=== PATIENT | male | born 1970 | race Caucasian/White ===

== ENCOUNTER 2022-03-14 14:07 | Outpatient (REF) | payer BC, SELFPAY ==
[2022-03-14 14:23] LABS: MANUAL DIFF FLAG NO
[2022-03-14 15:02] LABS: Basophils Percent Auto 0.4 % (0-2); Eosinophils Percent Auto 0.1 % (0-4); Hematocrit 43.5 % (42.0-52.0); Hemoglobin 15.5 g/dl (14.0-18.0); Imm Gran Abs Auto 0.04 X10*3/uL (0.00-0.03); Imm Gran Pct Auto 0.6 % (0.0-0.4); Lymphocytes Absolute Auto 1.8 X10*3/uL (1.2-4.9); Mean Corpuscular HGB Conc 35.6 g/dl (31.0-36.0); Mean Corpuscular Hemoglobin 31.7 pg (27.0-33.0); Mean Platelet Volume 9.1 fL (9.4-12.4); Monocytes Absolute Auto 0.4 X10*3/uL (0.1-1.2); Monocytes Percent Auto 5.5 % (2-11); Neutrophils Absolute Auto 4.8 x10*3/uL (2.0-8.3); Neutrophils Percent Auto 68.4 % (45-73); Platelet Count 278 X10*3/uL (160-400); Red Blood Count 4.89 X10*6/uL (4.60-5.80); Red Cell Distribution Width 12.3 % (11.0-16.0)
[2022-03-14 15:12] LABS: Estimated Average Glucose 100 mg/dL; Hemoglobin A1c % 5.1 %
[2022-03-14 15:31] LABS: Alanine Aminotransferase 33 U/L (0-40); Albumin Level 4.5 g/dL (3.5-5.0); Alkaline Phosphatase 89 U/L (39-117); Anion Gap 13 (12-20); Aspartate Amino Transferase 15 U/L (5-37); Blood Urea Nitrogen 16 mg/dL (9-16); Calcium 9.6 mg/dL (8.4-10.2); Carbon Dioxide 26 mmol/L (22-29); Chloride 105 mmol/L (96-108); Cholesterol 235 mg/dL; Estimated Glomerular Filt Rate > 60; Glucose Random 111 mg/dL (60-115); HDL Cholesterol 62 mg/dL; LDL Cholesterol Calculated 142 mg/dl; Potassium 4.1 mmol/L (3.3-5.1); Sodium 140 mmol/L (135-145); Total Protein 6.8 g/dL (6.5-8.0); Triglycerides 157 mg/dL
== END 2022-03-14 14:08 | disposition home or self-care (01) ==
LOC: HO.LAB 14:07
PROVIDERS: PCP Internal Medicine; Visit Provider Physician Assistant
DX: Z00.00 Encounter for general adult medical examination without abnormal findings (principal); Z12.5 Encounter for screening for malignant neoplasm of prostate
CPT/HCPCS: 36415; 80053; 80061; 83036; 84153; 85025

== ENCOUNTER 2022-04-05 08:59 | Outpatient (RCR) | payer BC, SELFPAY | END 2022-04-08 09:44 | disposition home or self-care (01) | LOC: HO.WCC 08:59 | PROVIDERS: PCP Internal Medicine; Visit Provider Physician Assistant | DX: L60.0 Ingrowing nail (principal); L03.032 Cellulitis of left toe; Z79.2 Long term (current) use of antibiotics | CPT/HCPCS: 99212 ==

== ENCOUNTER 2022-05-11 10:46 | Outpatient (REF) | payer BC, SELFPAY ==
[2022-05-11 12:51] LABS: Appearance Urine Clear; Color Urine Yellow; Glucose Urine UA Negative (Negative); Leukocyte Esterase Urine Moderate (2+) (Negative); Nitrite Urine Negative (Negative); PH 5.5 (5.0-9.0); Specific Gravity - Urine 1.015 (1.005-1.025); UMIC TRIGGER UACC YES; Urine Blood Small (1+) (Negative); Urine Ketones Negative (Negative); Urine Protein Trace mg/dL (Neg-Trace)
[2022-05-11 13:05] LABS: Bacteria Urine None Seen (None Seen); Hyaline Casts Urine 0-2 /LPF (0-2); RBC Urine 0-2 /HPF (0-2); Squamous Epithelial Cell Urine 0-2 /HPF (0-2); UACC Culture Trigger YES; WBC Urine 21-50 /HPF (0-5)
== END 2022-05-11 10:47 | disposition home or self-care (01) ==
LOC: HO.MANLDS 10:46
PROVIDERS: Visit Provider Physician Assistant
DX: R30.0 Dysuria (principal)
CPT/HCPCS: 81001; 87086; 87088; 87186

== ENCOUNTER 2022-12-12 13:24 | Outpatient (REF) | payer BC, SELFPAY ==
[2022-12-12 14:11] LABS: Appearance Urine Clear; Color Urine Yellow; Glucose Urine UA Negative (Negative); Leukocyte Esterase Urine Moderate (2+) (Negative); Nitrite Urine Negative (Negative); PH 5.5 (5.0-9.0); UMIC TRIGGER UACC YES; Urine Blood Trace (Negative); Urine Ketones Negative (Negative); Urine Protein Negative (Neg-Trace)
[2022-12-12 14:19] LABS: Bacteria Urine None Seen (None Seen); Hyaline Casts Urine 0-2 /LPF (0-2); RBC Urine 0-2 /HPF (0-2); Squamous Epithelial Cell Urine 0-2 /HPF (0-2); UACC Culture Trigger YES; WBC Urine >50 /HPF (0-5)
== END 2022-12-12 13:25 | disposition home or self-care (01) ==
LOC: HO.LNP 13:24
PROVIDERS: Visit Provider Internal Medicine
DX: R30.0 Dysuria (principal)
CPT/HCPCS: 81001; 87086; 87088; 87186

== ENCOUNTER 2023-01-05 22:17 | Emergency (ER) | payer BC, SELFPAY ==
[2023-01-05 22:24] VITALS: BP 144/82; PULSE 86; O2SAT 96
[2023-01-05 22:42] VITALS: PULSE 83; RESP 18; TEMP 36.8; O2SAT 96; BMI 32.1
--- NOTE | 2023-01-05 22:50 | PC.NURSE ---
pt biba from the car, pt found in car by PD slumped over in car. pt denies any substance abuse at this time including alcohol and drugs. pt denies pain. pt denies si/hi. per charger operator, ok to not change pt over at this time.
--- NOTE | 2023-01-05 23:40 | PC.NURSE ---
upon exiting another pt room, this RN noted pt to no longer be in stretcher, stretcher had been taken to other room. Floral Merchandiser Terry had stated to me she had seen pt walking towards ambulance bay and alerted charge of incident. security alerted at this time.
--- NOTE | 2023-01-05 23:50 | PC.NURSE ---
pt biba from the car, pt found in car by PD slumped over in car. pt denies any substance abuse at this time including alcohol and drugs. pt denies pain. pt denies si/hi. per discharge specialist, ok to not change pt over at this time.
--- NOTE | 2023-01-05 23:55 | PC.NURSE ---
pt not in his bed, security checking on the cameras. last set of vitals at 2242 and seen last by barrington at 2330. hr receptionist seen pt walk out the doors. security confirms pt walking out the door at 2338. got in to a vehicle in c lot and left. pt was in his street clothing.
--- NOTE | 2023-01-06 | PC.NURSE ---
pt daughter called and left message to return call to .
--- NOTE | 2023-01-06 00:06 | PC.NURSE ---
Micaelafier spouse has been contacted and he has not called home or shown up yet. the will try calling his cell phone [phone]. christiano galloway has bee called.
--- NOTE | 2023-01-06 00:33 | PC.NURSE ---
reading back at the notes and this hemodialysis charge nurse never stated it was ok not to change him over into pod attire. pt is to be changed over into hospital gown.
--- NOTE | 2023-01-06 00:53 | PC.NURSE ---
called again to see if saji has returned home. no answer. left message. pt cell phone was also called and no answer.
--- NOTE | 2023-01-06 01:02 | PC.NURSE ---
Angelina called back and he is at home safe and sound. believes he doesnt need hospital attention tonight. this rn encouraged for him to be brought back to be evaluated. this call was at 0100.
== END 2023-01-06 00:59 | disposition left against medical advice (07) ==
PROVIDERS: Emergency Provider Emergency Medicine
DX: R41.82 Altered mental status, unspecified (principal)
CPT/HCPCS: 99281

== ENCOUNTER 2023-03-15 08:08 | Outpatient (REF) | payer BC, SELFPAY ==
[2023-03-15 12:44] LABS: MANUAL DIFF FLAG NO
[2023-03-15 12:47] LABS: Eosinophils Absolute Auto 0.1 X10*3/uL (0.0-0.4); Eosinophils Percent Auto 3.3 % (0-4); Hematocrit 45.5 % (42.0-52.0); Hemoglobin 15.8 g/dl (14.0-18.0); Lymphocytes Absolute Auto 1.6 X10*3/uL (1.2-4.9); Lymphocytes Percent Auto 39.9 % (20-40); Mean Corpuscular HGB Conc 34.7 g/dl (31.0-36.0); Mean Corpuscular Hemoglobin 31.9 pg (27.0-33.0); Mean Corpuscular Volume 91.7 fL (80.0-98.0); Mean Platelet Volume 9.8 fL (9.4-12.4); Monocytes Absolute Auto 0.3 X10*3/uL (0.1-1.2); Monocytes Percent Auto 6.5 % (2-11); Neutrophils Percent Auto 49.3 % (45-73); Platelet Count 251 X10*3/uL (160-400); Red Blood Count 4.96 X10*6/uL (4.60-5.80); Red Cell Distribution Width 12.6 % (11.0-16.0)
[2023-03-15 13:00] LABS: Estimated Average Glucose 103 mg/dL; Hemoglobin A1c % 5.2 % (<6.0)
[2023-03-15 13:16] LABS: Alanine Aminotransferase 25 U/L (0-40); Albumin Level 4.3 g/dL (3.5-5.0); Alkaline Phosphatase 81 U/L (39-117); Anion Gap 12 (12-20); Aspartate Amino Transferase 19 U/L (5-37); Bilirubin Total 1.1 mg/dL (0.0-1.0); Blood Urea Nitrogen 12 mg/dL (9-16); Calcium 9.2 mg/dL (8.4-10.2); Carbon Dioxide 24 mmol/L (22-29); Chloride 107 mmol/L (96-108); Cholesterol 229 mg/dL (<200); Estimated Glomerular Filt Rate > 60; Glucose Random 88 mg/dL (60-115); HDL Cholesterol 46 mg/dL (>40); LDL Cholesterol Calculated 161 mg/dL (<100); Potassium 4.2 mmol/L (3.3-5.1); Sodium 139 mmol/L (135-145); Total Protein 6.8 g/dL (6.5-8.0); Triglycerides 110 mg/dL (<150)
== END 2023-03-15 08:09 | disposition home or self-care (01) ==
LOC: HO.MANLDS 08:08
PROVIDERS: Visit Provider Physician Assistant
DX: Z00.00 Encounter for general adult medical examination without abnormal findings (principal); Z12.5 Encounter for screening for malignant neoplasm of prostate
CPT/HCPCS: 36415; 80053; 80061; 83036; 84153; 85025

== ENCOUNTER 2024-04-29 08:55 | Outpatient (REF) | payer BC, SELFPAY ==
--- OUTSIDE RECORDS SUMMARY | 2024-04-29 09:23 | XMS_ITS | Clinical Summary ---
Author Organization [facility] Address [address] [place] [address] Care Team Providers Care Port Traffic Manager Name Role Phone Unavailable Primary Care Provider Unavailabl e Source Comments PLEASE NOTE, if this patient is a minor, it may be UNLAWFUL to discuss sensitive information that is contained in these records (such as FAMILY PLANNING, MENTAL HEALTH or SUBSTANCE ABUSE) with the minor patient's parent or other person without the patient's specific authorization.[facility] Immunizations Name Administration Dates Next Due Moderna COVID-19 Vaccine, re d cap blue label, 12+ Primary Series 06/23/2020,05/26/2020 Social History Tobacco Use Types Packs/Day Years Used Date Smoking Tobacco: Never Assessed Social Connections Answer Date Recorded Social Connections and Isolation 0 05/26/2020 Financial Resource Strain Answer Date R ecorded Financial Resource Strain 0 2020 Stress Answer Date Recorded Stress 0 05/26/2020 Physical Activity Answer Date Recorded Physical Activity 0 05/26/2020 Food Insecurity Answer Date Recorded Food 0 05/26/2020 Transportation Needs Answer Date Record ed Transportation 0 05/26/2020 Housing Stability Answer Date Recorded Housing 0 05/26/2020 Safety and Environment Answer Date Leonid rded Safety 0 05/26/2020 Utilities Answer Date Recorded Utilities 0 05/26/2020 Employment Answer Date Recorded Employment 0 05/26/2020 Sex and Gender Information Value Date Recorded Sex Assigned at Not on file Legal Sex Male 6:17 AM PDT Gender Identity Not on file Sexual Orientation Not on file Plan of Treatment Health Maintenance Due Date Last Done Comments Diabetes Screening 1968 Hepatitis C Screening 1968 Lipid Screening 1968 Tobacco Screening 1968 HIV Screening 01/06/1983 Hypertension Screening (#1) 01/06/1986 Imm-DTaP/Tdap/Td (1 - Tdap) 01/06/1987 Imm-Hepatitis B (1 of 3 - 19 + 3-dose series) 01/06/1987 CT Colonography 01/06/2013 Colonoscopy 01/06/2013 Colorectal Cancer Screening 01/06/2013 FIT/gFOBT 01/06/2013 Fecal DNA 01/06/2013 Flexible Sigmoidoscopy 01/06/2013 Imm-Zoster, Recombinant (1 of 2) 01/06/2018 [id number] ( season) 2023 021, 05/26/2020 Imm-Influenza (#1) 2023 Alcohol and Drug Screen 02/21/2024 Depression Annual Screen 02/21/2024 Insurance Dragon Inside [employer] Member Subscriber Plan / Payer (Ef fective 2020-Present) Name:Tasha MCCOY Relation to Subscriber:Self Name:Tasha MCCOY Payer ID:[id number] Type:Indemnity Address: [facility] [id number] [place] [address]
--- OUTSIDE RECORDS SUMMARY | 2024-04-29 09:23 | XMS_ITS | Continuity of Care Document ---
Author Organization [facility] Address [address] [place] [address] [place] [address] Assessment No assessment recorded. Plan of Treatment Reminders Order Date Submit Date Provider Last Modified By Organization Details Last Modified Time Details Appointments None recorded. Lab CMP, serum or plasma 2024 025 [facility], [address] [place] [address], [address], 12:17:13 CBC w/ auto diff 2024 025 [facility], [address] [place] [address], [address], 12:17:13 PSA, serum or plasma 2024 025 [facility], [address] [place] [address], [address], 12:17:14 lipid panel, blood 2024 025 [facility], [address] [place] [address], [address], 5 12:17:14 hemoglobin A1c, QN, blood 2024 025 [facility], [address] [place] [address], [address], 5 12:17:13 Referral None recorded. Procedures None recorded. Surgeries None recorded. Imaging XR, shoulder, 2 or more view 2024 025 [facility] Central Scheduling (Not Breast), [address] [place] [address], [address], 13:03:18 XR, clavicle 2024 025 [facility] Central Scheduling (Not Breast), [address] [place] [address], [address], 13:03:20 Medication Orders None recorded. Patient TargetsNo targets recorded. Patient InstructionsNo instructions recorded. Reason for Referral None Reported. Results Created Date Observation Date Name Description Value Unit Range Abnormal Flag Note LastModifiedBy Organization Detail LastModifiedTime 04/26/1904/24/2024 XR, shoul leslie, 2 or more view No observ ation record ed. [address], [address], 04/26/2024 08:50:24 04/26/19 25 04/24/2024 XR, clavi xavi No observ ation record ed. [address], [address], 04/26/2024 08:50:24 Result Notes None recorded. Problems Name Problem SNOMED Code Status Onset Date Resolution Date Notes Provider Name and Address Organization Details Recorded Time Herpes zoster 4289287 Active 2019 RAFAEL CANELA [address] [place] [address], [address], [facility] 0 11:26:52 Infection of toe 941161871 Active 2022 RAFAEL CANELA [address] [place] [address], [address], [facility] 3 12:33:48 Dysuria 23241716 Active 2022 RAFAEL CANELA [address] [place] [address], [address], [facility] 3 10:43:53 Acute urinary tract infection 604069104 Active 2022 RAFAEL CANELA [address] [place] [address], [address], [facility] 3 12:27:17 Acute prostatit is 40272819 Active 2022 Cruz Lopez [address], [address], [facility] 3 12:31:04 Pain in finger of right hand 362586339602 109 Active 2022 Cruz Lopez [address], [address], [facility] 3 12:31:34 Pain of right testicle 322613345233 [address] Active 2023 RAFAEL CANELA [address] [place] [address], [address], [facility] 4 11:51:09 Clavicle injury 601421792 Active 2024 RAFAEL CANELA [address] [place] [address], [address], [facility] 5 10:11:32 Asthma 742094138 Active 2017 Ale escalera [facility] 8 08:01:42 Allergic rhinitis 17356115 Active 2017 Ale escalera [facility] 8 08:02:56 Problem Notes None recorded. Procedures Surgical History Date Name Laterality Status Provider Name and Address Organization Details Recorded Time 09/28/19 20 colonoscopy completed RAFAEL CANELA [address] [place] [address], [address], [facility] 03/03/2022 09:01:50 Imaging Results None recorded. Procedure Notes None recorded. Medical Equipment None Reported. Allergies No known drug allergies Medications Name Sig Start Date Stop Date Status Note LastModified by Organization Details LastModified Time prednisone 20 mg tablet 03/03 completed Not Available Not Available Not Available ciprofloxac in 500 mg tablet TAKE 1 TABLET BY MOUTH EVERY 12 HOURS FOR 7 DAYS 10/30 completed Not Available Not Available Not Available sulfamethox azole 800 mg-trimetho prim 160 mg tablet TAKE ONE TABLET BY MOUTH EVERY 12 HOURS FOR 12 DAYS 08/28 completed Not Available Not Available Not Available triamcinolo ne acetonide 0.1 % topical cream APPLY THIN LAYER TOPICALLY TO THE AFFECTED AREA TWICE DAILY 12/12 completed Not Available Not Available Not Available cefadroxil 500 mg capsule TAKE 1 CAPSULE BY MOUTH TWICE DAILY 12/12 completed Not Available Not Available Not Available phenazopyri dine 100 mg tablet TAKE 1 TABLET BY MOUTH THREE TIMES DAILY 08/28 completed Not Available Not Available Not Available Valtrex 1 gram tablet Take 1 tablet every 8 hours by oral route for 7 days. 12/12 completed Not Available Not Available Not Available cephalexin 500 mg tablet TAKE 1 TABLET BY MOUTH THREE TIMES DAILY WITH MEALS FOR 10 DAYS 03/03 completed Not Available Not Available Not Available clobetasol 0.05 % topical ointment APPLY SMALL AMOUNT TOPICALLY TO THE AFFECTED AREA DAILY FOR 2 TO 4 WEEKS THEN STOP 03/03 completed Not Available Not Available Not Available methylpredn isolone 4 mg tablets in a dose pack FOLLOW PACKAGE DIRECTION S 12/12 completed Not Available Not Available Not Available doxycycline hyclate 100 mg tablet TAKE 1 TABLET BY MOUTH TWICE DAILY FOR 10 DAYS 12/12 completed Not Available Not Available Not Available nitrofurant oin monohydrate /macrocryst als 100 mg capsule TAKE 1 CAPSULE BY MOUTH EVERY 12 HOURS FOR 10 DAYS 12/12 completed Not Available Not Available Not Available ProAir HFA 90 mcg/actuati on aerosol inhaler Inhale 2 puffs every 4 hours by inhalatio n route. 12/12 completed Not Available Not Available Not Available Afluria Qd 2018- (36 mos up)(PF)60 mcg (15 mcg x4)/0.5 mL IM syringe 03/03 completed Not Available Not Available Not Available Vitals Date Recorded Body height Body mass index (BMI) Body weight Heart rate Oxygen saturation Oxygen saturation in Arterial blood by Pulse oximetry Systolic blood pressure Diastolic blood pressure Provider Name and Address Organization Details Last Updated DateTime 5 190.5 cm 41 kg/m2 827268. 3 g 84 /min 94 % 94 % 124 mm[Hg] 80 mm[Hg] Jim Sage [facility] 5 11:36:00 Social History Question Answer Notes LastModified by Organizat ion Details LastModified Time Tobacco Smoking Status Never Smoker Ale escalera [facility] 06/19/2017 09:09:21 What Was The Date Of Your Most Recent Tobacco Screening? 04/24/2024 [email or web address] Information not available 04/24/2024 Do You Or Have You Ever Used Any Other Forms Of Tobacco Or Nicotine? No [email or web address] Information not available 03/03/2022 Sex: Unknown Functional Status None recorded. Mental Status None recorded. Family History Nothing Reported. Medical History No medical history recorded. Immunizations Vaccine Type Date Status Note Provider Nam e and Address Organization Details Recorded Time Influenza, split virus, quadrivalent, preservative 1 completed Ale escalera [facility] 12/29/2020 08:30:08 COVID-19, mRNA, LNP-S, PF, 100 mcg/0.5mL dose or 50 mcg/0.25mL dose 1 completed Ale escalera [facility] 12/29/2020 08:30:22 Tdap 9 completed RAFAEL CANELA [address] [place] [address], [address], [facility] 03/13/2023 09:17:16 Past Encounters Encounter ID Performer Location Encounter Start Date Encounter Closed Date Diagnosis/Indication Diagnosis SNOMED-CT Code Diagnosis ICD10 Code Diagnosis Note [id number] [facility] [address] [place] [address], [place] [address] 04/09/2024 09:18:09 04/09/2024 11:03:22 Clavicle injury 224436989 S29.9XXA ortho referral sent fall W19.XXXA [id number] RAFAEL CANELA [facility] [address] [place] [address], [place] [address] 04/24/2024 11:28:30 04/24/2024 12:27:12 Active or passive immunization 044492858 Z23 up-to-date Adult heal th examination 667360950 Z00.00 BP is excellent today Clavicle injury 30443380 4 S29.9XXA recheck XR'sortho f/u 05/07 will see if worse to get him sooner Health Concerns Section Related Observation LastModified by Organization Detai ls LastModified Time None Recorded Concern Status LastModified by Organization Details LastModified Time None Recorded Payers Encounter Date Sequence Insurance Name Policy Number Policy Haynes Covered Member ID Haynes Member ID Guarantor Name 04/24/2024 1 [facility]: [facility] [place] [place] [id number] Angelina Pop [id number] Angelina Pop Notes Date Note Type Note Provider Name a de Address Organization Details Recorded Time text/html Annual WellnessReported bypatient.Diet and Nutrition:healthy diet; discussed vitamin and supplement use; discussed portion control; discussed maintaining calcium balance; discussed diet improvement Fracture Risk:no history of fractures; no recent explained fracture; no sudden unexplained fractures; no previous musculoskeletal injuries Physical Activity:exercises on a regular basis; recent increase in physical activity; good physical condition Additional Lifestyle Factors:no tobacco use; drinks alcohol (mild-moderate) Depression Risk:never feels sad, empty, or tearful; no loss of interest in activities; no significant changes in weight; no sleep disturbances or insomnia; no agitation; no loss of energy; no feelings of worthlessness or guilt; no thoughts of suicide; no history of depression; no history of mood disorders Hearing:no loss of hearing Vision:no vision problems RAFAEL CANELA [address] [place], [address], [facility] 04/24/2024 12:10:20
--- OUTSIDE RECORDS SUMMARY | 2024-04-29 09:23 | XMS_ITS | Data Portability ---
Author Organization [facility] Home Service Address [address] [place] [address] Assessment Encounter Date Assessment Date Assessment LastModified by Organization Details LastModified Time 04/09/2024 04/09/2024 Patient agreed and verbally consents to this audio and video Telehealth appt via a secure platform [email or web address] Not available 04/09/2024 10:11:04 Plan of Treatment Reminders Order Date Submit Date Provider Last Modified By Organization Details Last Modified Time Details Appointments None recorded. Lab CMP, serum or plasma 2024 025 [facility], [address] [place] [address], [address], 12:17:13 CBC w/ auto diff 2024 025 [facility], [address] [place] [address], [address], 12:17:13 PSA, serum or plasma 2024 025 [facility], [address] [place] [address], [address], 12:17:14 lipid panel, blood 2024 025 [facility], [address] [place] [address], [address], 5 12:17:14 hemoglobin A1c, QN, blood 2024 025 [facility], [address] [place] [address], [place], [address], 5 12:17:13 urinalysis complete, reflex culture 2023 024 [facility], [address] [place] [address], [place], [address], 4 15:12:36 CMP, serum or plasma 2023 024 [facility], [address] [place] [address], [address], 4 12:37:15 CBC w/ auto diff 2023 024 [facility], [address] [place] [address], [address], 4 12:37:16 lipid panel, blood 2023 024 [facility], [address] [place] [address], [place], [address], 4 09:22:33 PSA, serum or plasma 2023 024 [facility], [address] [place] [address], [address], 4 12:37:15 hemoglobin A1c, QN, blood 2023 024 [facility], [address] [place] [address], [address], 4 12:37:15 Referral orthopedic surgeon referral 2024 025 [facility], [address] [place], [address], 5 12:11:43 gastroente rologist referral 2023 024 lima Danielson MD, [address] [place], [address], 4 08:28:09 Procedures None recorded. Surgeries None recorded. Imaging XR, shoulder, 2 or more view 2024 025 [facility] Central Scheduling (Not Breast), [address] [place] [address], [address], 5 13:03:18 XR, clavicle 2024 025 [facility] Central Scheduling (Not Breast), [address] [place] [address], [address], 5 13:03:20 US, testicle - right testicular mass/swell ing with discomfort 2023 024 [email or web address] 10 Not available 4 08:16:46 Medication Orders ciprofloxa dari 500 mg tablet 2023 024 [id number], [address] [place], [place], [id number], 4 11:47:29 Patient TargetsNo targets recorded. Patient InstructionsNo instructions recorded. 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 [email or web address] [address], [address], 11/07/2023 15:04:56 04/26/19 25 04/24/2024 XR, shoul leslie, 2 or more view No observ ation record ed. [address], [address], 04/26/2024 08:50:24 04/26/19 25 04/24/2024 XR, clavi xavi No observ ation record ed. [address], [address], 04/26/2024 08:50:24 Result Notes None recorded. Problems Name Problem SNOMED Code Status Onset Date Resolution Date Notes Provider Name and Address Organization Details Recorded Time Herpes zoster 7747777 Active 2019 RAFAEL CANELA [address] [place] [address], [address], [facility] 0 11:26:52 Infection of toe 027808874 Active 2022 RAFAEL CANELA [address] [place] [address], [address], [facility] 3 12:33:48 Dysuria 99885835 Active 2022 RAFAEL CANELA [address] [place] [address], [address], [facility] 3 10:43:53 Acute urinary tract infection 565681773 Active 2022 RAFAEL CANELA [address] [place] [address], [address], [facility] 3 12:27:17 Acute prostatit is 70357648 Active 2022 Cruz Lopez DO [address] [place] [address], [address], [facility] 3 12:31:04 Pain in finger of right hand 153724863209 109 Active 2022 Cruz Lopez DO [address] [place] [address], [address], [facility] 3 12:31:34 Pain of right testicle 804992144651 77387 Active 2023 RAFAEL CANELA [address] [place], [address], [facility] 4 11:51:09 Clavicle injury 292741214 Active 2024 RAFAEL CANELA [address] [place], [address], [facility] 5 10:11:32 Ast[facility] 793700234 [facility] 8 08:01:42 Allergic rhinitis 74991331 [facility] 08:02:56 Problem Notes None recorded. Procedures Surgical History Date Name Laterality Status Provider Name and Address Organization Details Recorded Time 09/28/19 20 colonoscopy completed RAFAEL CANELA [address] [place], [address], [facility] 03/03/2022 09:01:50 Imaging Results Imaging Date Name Status LastModified by Organiz ation Details LastModified Time 11/06/2023 US, testicle completed [email or web address] [address], [address], 11/07/2023 15:04:56 04/24/2024 XR, shoulder, 2 or more view completed [email or web address] [address], [address], 04/26/2024 08:50:24 04/24/2024 XR, clavicle completed [email or web address] [address], [address], 04/26/2024 08:50:24 Procedure Notes None recorded. Medical Equipment None [...] and Address Organization Details Last Updated DateTime 4 190.5 cm 32 kg/m2 634068. 65 g 82 /min 96 % 96 % 110 mm[Hg] 60 mm[Hg] Charis Coy [facility] 4 09:11:06 Date Recorded Body height Body mass index (BMI) Body weight Heart rate Oxygen saturation Oxygen saturation in Arterial blood by Pulse oximetry Systolic blood pressure Diastolic blood pressure Provider Name and Address Organization Details Last Updated DateTime 4 190.5 cm 31.5 kg/m2 190831. 56 g 92 /min 94 % 94 % 118 mm[Hg] 78 mm[Hg] Jim Sage [facility] 4 15:01:14 Date Recorded Body height Body mass index (BMI) Body weight Heart rate Oxygen saturation Oxygen saturation in Arterial blood by Pulse oximetry Systolic blood pressure Diastolic blood pressure Provider Name and Address Organization Details Last Updated DateTime 4 190.5 cm 31.2 kg/m2 132010. 09 g 74 /min 96 % 96 % 118 mm[Hg] 66 mm[Hg] Jim Sage [facility] 4 11:47:01 Date Recorded Body height Body mass index (BMI) Body weight Heart rate Oxygen saturation Oxygen saturation in Arterial blood by Pulse oximetry Systolic blood pressure Diastolic blood pressure Provider Name and Address Organization Details Last Updated DateTime 5 190.5 cm 41 kg/m2 718995. 3 g 84 /min 94 % 94 % 124 mm[Hg] 80 mm[Hg] Jim Sage [facility] 5 11:36:00 Social History Question Answer Notes LastModified by Organizat ion Details LastModified Time Tobacco Smoking Status Never Smoker Ale escalera [facility] 06/19/2017 09:09:21 What Was The Date Of [...] virus, quadrivalent, preservative 1 completed Ale escalera [facility] 12/29/2020 08:30:08 COVID-19, mRNA, LNP-S, PF, 100 mcg/0.5mL dose or 50 mcg/0.25mL dose 1 completed Ale escalera [facility] 12/29/2020 08:30:22 Tdap 9 completed RAFAEL CANELA [address] [place] [address], [address], [facility] 03/13/2023 09:17:16 Past Encounters Encounter ID Performer Location Encounter Start Date Encounter Closed Date Diagnosis/Indication Diagnosis SNOMED-CT Code Diagnosis ICD10 Code Diagnosis Note [id number] Meagan Russo NP, S [facility] [address] [facility], [place] [address] 06/19/2017 09:02:31 06/19/2017 10:36:33 Oxygen saturation below reference range 563992926 R79.81 call if symptoms recur Asthma 004409978 J45.90 9 mild intermitte nt Viral uppe r respiratory tract infection 407200675 J06.9 supportive care measures, call if persists [id number] RAFAEL CANELA [facility] [address], [place] [address] 09/11/2019 11:11:43 09/11/2019 11:36:39 Asthma 783805562 J45.909 stable Herpes zoster 8457290 B0 2.9 possible shingles rash on the chest did not clear up with prednisone and causing chest discomfort /pain in area of the rash [id number] RAFAEL CANELA [facility] [address], [place] [address] 03/03/2022 08:46:05 03/03/2022 09:17:27 Active or passive immunization 540312148 Z23 up to date Adult heal th examination 507386597 Z00.00 BP is stable Asthma 349144967 J45.20 stable; avoid his triggersdo ing really well Herpes zoster 1107619 B0 2.9 needs refill [id number] Cruz Lopez, [facility] [address] [address] 12/12/2022 11:49:21 12/12/2022 15:38:05 Dysuria 68503940 R30.0 has frequency and we will have his UA sent out Acute prostatitis 150843 02 N41.0 fairly classic symptoms will send out UA but will treat with bactrim ds Pain in fi nger of right hand 4084963783 74755 M79.644 noted in 3rd ln knuckle of right hand will use diclofenac gel [id number] RAFAEL CANELA [facility] [address] [facility] [address] [address] 03/13/2023 09:01:37 03/13/2023 09:40:37 Adult health examination 045888673 Z00.00 BP is excellent today Screening for malignant neoplasm of colon 608825723 Z12.11 will set up with GI consult, may be due for his colonoscop y [id number] RAFAEL CANELA [facility] [address] [facility] [address] [address] 08/29/2023 14:39:49 08/29/2023 16:14:25 Dysuria 00165163 R30.0 will send out urine Depression screening 171 288927 Z13.31 negative Acute prostatitis 855705 02 N41.0 will start on cipro for the next 7 days BID [id number] RAFAEL CANELA [facility] [address] [facility] [address] [address] 10/31/2023 11:38:19 10/31/2023 13:30:10 Depression screening 352276721 Z13.31 negative Pain of ri ght testicle 1182059220 9712470 N50.811 will set up with US testicle [id number] RAFAEL CANELA [facility] [address],[place] [address] 04/09/2024 09:18:09 04/09/2024 11:03:22 Clavicle injury 022653524 S29.9XXA ortho referral sent Fall W19.XXXA [id number] RAFAEL CANELA [facility] [address] [address] 04/24/2024 11:28:30 04/24/2024 12:27:12 Active or passive immunization 264508534 Z23 up-to-date Adult heal th examination 446563845 Z00.00 BP is excellent today Clavicle injury 07515379 4 S29.9XXA recheck XR'sortho f/u 05/07 will see if worse to get him sooner Health Concerns Section Related Observation LastModified by Organization Detai ls LastModified Time None Recorded Concern Status LastModified by Organization Details LastModified Time None Recorded Advance Directives Directive None Recorded Payers Encounter Date Sequence Insurance Name Policy Number Policy Haynes Covered Member ID Haynes Member ID Guarantor Name 03/13/2023 1 [place] [facility] [id number] Angelina P Kiesha [id number] Angelina Kiesha 08/29/2023 1 [place] [facility] [id number] Angelina P Kiesha [id number] Angelina Kiesha 10/31/2023 1 [place] [facility] [id number] Angelina P Kiesha [id number] Angelina Kiesha 04/09/2024 1 [place] [facility] [id number] Angelina P Kiesha [id number] Angelina Kiesha 04/24/2024 1 [place] [facility] [id number] Angelina P Kiesha [id number] Angelina Kiesha Notes Date Note Type Note Provider Name a nd Address Organization Details Recorded Time text/html Annual WellnessReported bypatient.Diet and Nutrition:healthy diet; discussed vitamin and supplement use; discussed portion control; discussed maintaining calcium balance; discussed diet improvement Fracture Risk:no history of fractures; no recent explained fracture; no sudden unexplained fractures; no previous musculoskeletal injuries Physical Activity:exercises on a regular basis; recent increase in physical activity; good physical condition; discussed weightbearing activities; discussed exercise habits Additional Lifestyle Factors:no tobacco use; drinks alcohol (mild-moderate) Depression Risk:never feels sad, empty, or tearful; no loss of interest in activities; no significant changes in weight; no sleep disturbances or insomnia; no agitation; no loss of energy; no feelings of worthlessness or guilt; no thoughts of suicide; no history of depression; no history of mood disorders Hearing:no loss of hearing Vision:no vision problems; uses cheaters up close issues, distance is fine BP is excellent todayasthma is stable RAFAEL CANELA [address] [place], [address], [facility] 03/13/2023 09:25:54 4 text/html c/o UTI symptoms/hx of prostatitis the patient reports for the past week he has had urinary symptoms, hx of prostatitisthe patient reports frequency, urgency, cloudy urine, and general discomfortthe patient has been using Azo for the discomfort can continue the Azowill start on cipro for the next 7 days depression screening negative RAFAEL CANELA [address] [place], [address], [facility] 08/29/2023 15:13:27 4 text/html c/o testicular pain (R) the patient has an enlarged testicle on the right side with swelling and discomfortthe patient reports that it has been going on for about 2 years, had been seen prior, not by our office, nothing noted on file, could have been UC, patient not entirely sure, was told that it wasn't concerning and did urine and lab work that unremarkable has been getting bigger and more uncomfortable, recommended US after evaluation RAFAEL CANELA [address] [place], [address], [facility] 10/31/2023 12:01:15 5 text/html c/o clavicular injury The patient is participating in this appointment via telemedicine communication with a phone call/video calling service (Doxy)The patient consents to use of these platforms in place of an in-person appointment due to either sick symptoms the patient is presenting with or current office closure due to COVID exposure in order to keep our office staff and patients safe the patient fell on the ice on , went to on Mondaythe patient got XRs showed separation of the R distal clavicle, grade 3the recommended orthopedics, advanced orthopedics (in [place]) per pt research referral placedhas report and XRs with him, he will provide at time of appt otherwise can use APAP and IBu PRN for painavoid excess use of the right arm RAFAEL CANELA [address] [place], [address], [facility] 04/09/2024 10:15:23 5 text/html Annual WellnessReported bypatient.Diet and Nutrition:healthy diet; [...] hearing Vision:no vision problems RAFAEL CANELA [address] [place], [address], [facility] 04/24/2024 12:10:20
--- OUTSIDE RECORDS SUMMARY | 2024-04-29 09:23 | XMS_ITS | Continuity of Care Document ---
Author Organization [place] [facility], [facility] Address [address] [facility] [place] [address] [place] [address] Assessment Encounter Date Assessment Date Assessment LastModified by Organization Details LastModified Time 04/09/2024 04/09/2024 Patient agreed and verbally consents to this audio and video Telehealth appt via a secure platform [facility] Not available 04/09/2024 10:11:04 Plan of Treatment Reminders Order Date Submit Date Provider Last Modified By Organization Details Last Modified Time Details Appointments None recorded. Lab None recorded. Referral orthopedic surgeon referral [address] [facility], [address] [place], [address], 12:11:43 Procedures None recorded. Surgeries None recorded. Imaging None recorded. Medication Orders None recorded. Patient TargetsNo targets recorded. Patient InstructionsNo instructions recorded. Reason for Referral Orthopedic Surgeon Referral for Clavicle injury right distal clavicular injury, grade 3 separation per UC, has records he is bringing Referring Physician: Arleen Prater, Internal Medicine, Encounter Date: 04/09/2024 Results Created Date Observation Date Name Description Value Unit Range Abnormal Flag Note LastModifiedBy Organization Detail LastModifiedTime 04/26/1904/24/2024 XR, shoul leslie, 2 or more view No observ ation record ed. [email or web address] [facility] [address] [facility], [place], [address], 04/26/2024 08:50:24 04/26/1904/24/2024 XR, clavi xavi No observ ation record ed. [email or web address] [facility] [address] [facility], [place], [address], 04/26/2024 08:50:24 Result Notes None recorded. Problems Name Problem SNOMED Code Status Onset Date Resolution Date Notes Provider Name and Address Organization Details Recorded Time Herpes zoster 6076614 Active 2019 RAFAEL CANELA [address] [place] [address], [address], [facility] 0 11:26:52 Infection of toe 911483571 Active 2022 RAFAEL CANELA [address] [place] [address], [address], [facility] 3 12:33:48 Dysuria 00338556 Active 2022 RAFAEL CANELA [address] [place] [address], [address], [facility] 3 10:43:53 Acute urinary tract infection 248839648 Active 2022 RAFAEL CANELA [address] [place] [address], [address], [facility] 3 12:27:17 Acute prostatit is 34746334 Active 2022 Cruz Lopez DO [address] [place] [address], [address], [facility] 3 12:31:04 Pain in finger of right hand 355162554019 109 Active 2022 Cruz Lopez DO [address] [place] [address], [address], [facility] 3 12:31:34 Pain of right testicle 025381732361 [address] Active 2023 RAFAEL CANELA [address] [place] [address], [address], [facility] 4 11:51:09 Clavicle injury 548571078 Active 2024 RAFAEL CANELA [address] [place], [address], [facility] 5 10:11:32 Asthma 993928424 Active 2017 [facility] 8 08:01:42 Allergic rhinitis 58404478 Active 2017 Ale escalera [facility] 8 08:02:56 Problem Notes None recorded. Procedures Surgical History Date Name Laterality Status Provider Name and Address Organization Details Recorded Time 09/28/19 20 colonoscopy completed RAFAEL CANELA [address] [place], [address], [facility] 03/03/2022 09:01:50 Imaging Results None recorded. Procedure [...] Available Not Available Not Available Afluria Qd 2019- (36 mos up)(PF)60 mcg (15 mcg x4)/0.5 mL IM syringe 03/03 completed Not Available Not Available Not Available Vitals None Recorded Social History Question Answer Notes LastModified by Organizat ion Details LastModified Time Tobacco Smoking Status Never Smoker Ale escalera [facility] 06/19/2017 09:09:21 What Was The Date Of [...] virus, quadrivalent, preservative 1 completed Ale escalera [facility] 12/29/2020 08:30:08 COVID-19, mRNA, LNP-S, PF, 100 mcg/0.5mL dose or 50 mcg/0.25mL dose 1 completed Ale escalera [facility] 12/29/2020 08:30:22 Tdap 9 completed RAFAEL CANELA [address] [place], [address], [facility] 03/13/2023 09:17:16 Past Encounters Encounter ID Performer Location Encounter Start Date Encounter Closed Date Diagnosis/Indication Diagnosis SNOMED-CT Code Diagnosis ICD10 Code Diagnosis Note [id number] RAFAEL CANELA [facility] [address] [facility],[place] [address] 04/09/2024 09:18:09 04/09/2024 11:03:22 Clavicle injury 586204544 S29.9XXA ortho referral sent fall W19.XXXA Health Concerns Section Related Observation LastModified by Organization Detai ls LastModified Time None Recorded Concern Status LastModified by Organization Details LastModified Time None Recorded Payers Encounter Date Sequence Insurance Name Policy Number Policy Haynes Covered Member ID Haynes Member ID Guarantor Name 04/09/2024 1 [facility] [id number] Angelina Pop [id number] Angelina Pop Notes Date Note Type Note Provider Name a nd Address Organization Details Recorded Time 04/09/2024 text/html c/o clavicular injury The patient is participating in this appointment via telemedicine communication with a phone call/video calling service (Hitmeister)The patient consents to use of these platforms in place of an in-person appointment due to either sick symptoms the patient is presenting with or current office closure due to COVID exposure in order to keep our office staff and patients safe the patient fell on the ice on , went to UC on Mondaythe patient got XRs showed separation of the R distal clavicle, grade 3the recommended orthopedics, advanced orthopedics (in [place]) per pt research referral placedhas report and XRs with him, he will provide at time of appt otherwise can use APAP and IBu PRN for painavoid excess use of the right arm RAFAEL CANELA [address] [facility], [place], [address], [facility] 04/09/2024 10:15:23
[2024-04-29 13:14] LABS: MANUAL DIFF FLAG NO
[2024-04-29 13:39] LABS: Estimated Average Glucose 108 mg/dL; Hemoglobin A1c % 5.4 % (<6.0)
[2024-04-29 13:41] LABS: Basophils Absolute Auto 0.1 X10*3/uL (0.0-0.2); Basophils Percent Auto 1.3 % (0-2); Eosinophils Absolute Auto 0.2 X10*3/uL (0.0-0.4); Eosinophils Percent Auto 3.5 % (0-4); Hematocrit 46.3 % (42.0-52.0); Imm Gran Abs Auto 0.01 X10*3/uL (0.00-0.03); Imm Gran Pct Auto 0.2 % (0.0-0.4); Lymphocytes Absolute Auto 1.7 X10*3/uL (1.2-4.9); Lymphocytes Percent Auto 33.3 % (20-40); Mean Corpuscular HGB Conc 34.6 g/dl (31.0-36.0); Mean Corpuscular Hemoglobin 31.6 pg (27.0-33.0); Mean Corpuscular Volume 91.5 fL (80.0-98.0); Mean Platelet Volume 9.8 fL (9.4-12.4); Monocytes Absolute Auto 0.3 X10*3/uL (0.1-1.2); Monocytes Percent Auto 5.4 % (2-11); Neutrophils Absolute Auto 2.9 x10*3/uL (2.0-8.3); Neutrophils Percent Auto 56.3 % (45-73); Platelet Count 244 X10*3/uL (160-400); Red Blood Count 5.06 X10*6/uL (4.60-5.80); Red Cell Distribution Width 12.5 % (11.0-16.0); White Blood Count 5.2 X10*3/uL (4.8-10.8)
[2024-04-29 14:25] LABS: Albumin Level 4.5 g/dL (3.5-5.0); Alkaline Phosphatase 86 U/L (39-117); Anion Gap 12 (12-20); Aspartate Amino Transferase 24 U/L (5-37); Bilirubin Total 1.5 mg/dL (0.0-1.0); Blood Urea Nitrogen 15 mg/dL (9-16); Calcium 9.4 mg/dL (8.4-10.2); Carbon Dioxide 25 mmol/L (22-29); Chloride 108 mmol/L (96-108); Cholesterol 241 mg/dL (<200); Estimated Glomerular Filt Rate > 60; Glucose Random 91 mg/dL (60-115); HDL Cholesterol 52 mg/dL (>40); LDL Cholesterol Calculated 155 mg/dL (<100); Potassium 4.2 mmol/L (3.3-5.1); Sodium 141 mmol/L (135-145); Total Protein 7.5 g/dL (6.5-8.0); Triglycerides 172 mg/dL (<150)
[2024-04-29 14:58] LABS: Alanine Aminotransferase 44 U/L (0-40)
== END 2024-04-29 08:56 | disposition home or self-care (01) ==
LOC: HO.MANLDS 08:55
PROVIDERS: Visit Provider Physician Assistant
DX: Z00.00 Encounter for general adult medical examination without abnormal findings (principal); Z12.5 Encounter for screening for malignant neoplasm of prostate; Z13.1 Encounter for screening for diabetes mellitus; Z13.6 Encounter for screening for cardiovascular disorders
CPT/HCPCS: 36415; 80053; 80061; 83036; 84153; 85025